=== PATIENT | male | born 1990 | race African-American/Black ===

== ENCOUNTER 2022-02-04 18:54 | Emergency (ER) | payer OTHER ==
[~2022-02-04] VITALS: Ht 185.4 cm; Wt 81.0 kg
[2022-02-04] MEDS ORDERED: ONDANSETRON 4MG ODT PO ONE ×2 (19:15→21:15)
[2022-02-04 19:28] VITALS: BP 121/75
[2022-02-04] MEDS ORDERED: TRAMADOL 50MG TABLET PO ONE (19:30)
[2022-02-04] MEDS ORDERED: LIDOCAINE HCL 1% 10 MG/ML 10ML VIAL INJ NR (19:30)
[2022-02-04] MEDS ORDERED: BACITRACIN ZINC OINT UDPKT TOP ONE (19:30)
[2022-02-04] MEDS ORDERED: LIDOCAINE HCL/PF 1% 10 MG/ML 5ML VIAL INFIL ONE (19:30)
[2022-02-04] MEDS ORDERED: TETANUS, DIPHTHERIA, PERTUSSIS VAC/PF 0.5ML (>10YR OLD) IM ONE (19:30)
[2022-02-04] MEDS ORDERED: ONDA4TAB11 PO (21:43)
[2022-02-04] MEDS ORDERED: IBUP-2029 MT (21:43)
[2022-02-04] MEDS ORDERED: MUPI15CR11 TP (21:46)
== END 2022-02-04 22:26 | disposition home or self-care (01) ==
LOC: ER 18:54
DX: S00.01XA Abrasion of scalp, initial encounter (principal); K92.0 Hematemesis; H91.91 Unspecified hearing loss, right ear; V03.931A Pedestrian on standing electric scooter injured in collision with car, pick-up or van, unspecified whether traffic or nontraffic accident, initial encounter; Y93.89 Activity, other specified; Y92.488 Other paved roadways as the place of occurrence of the external cause
CPT/HCPCS: 70450; 70480; 72125; 82962; 99291; J3490; Q0162

== ENCOUNTER 2023-11-18 13:00 | Emergency (ER) | payer MEDICAID, OTHER ==
[~2023-11-18] VITALS: Ht 188 cm; Wt 68.0 kg
[~2023-11-18 13:00] MED LIST: IBUP-2029 MT; MUPI15CR11 TP; ONDA4TAB11 PO
[2023-11-18 13:19] VITALS: O2SAT 98
[2023-11-18 14:39] LABS: EOSINOPHILS % 0.3 % (0.0-5.0); HEMATOCRIT. 50.7 % (42.0-52.0); HEMOGLOBIN. 17.1 g/dL (14.0-18.0); LYMPHOCYTES % 17.1 % (20.0-50.0); MEAN CORPUSCULAR HEMOGLOBIN 33.5 pg (28.0-32.0); MEAN CORPUSCULAR HGB CONC 33.7 g/dL (31.0-37.0); MEAN CORPUSCULAR VOLUME 99.4 fL (80.0-94.0); NEUTROPHILS % 72.6 % (40.0-76.0); PLATELET 226 x1000/uL (130-400); RED CELL DISTRIBUTION WIDTH 13.6 % (11.6-14.6); WHITE BLOOD COUNT 7.5 x1000/uL (4.5-11.0)
[2023-11-18 15:03] LABS: ALANINE AMINOTRANSFERASE 108 IU/L (10-49); ALBUMIN 4.2 g/dL (3.2-4.8); ASPARTATE AMINOTRANSFERASE 138 IU/L (<34); BILIRUBIN TOTAL 0.4 mg/dL (0.1-1.0); CALCIUM 9.8 mg/dL (8.7-10.4); CARBON DIOXIDE 23 mEq/L (21-32); CHLORIDE 95 mEq/L (98-107); CREATININE 0.7 mg/dL (0.6-1.3); ETHANOL BLOOD 139 mg/dL (<10); GLUCOSE 86 mg/dL (70-105); POTASSIUM 4.5 mEq/L (3.5-5.1); SODIUM 132 mEq/L (136-145); UREA NITROGEN BLOOD 7 mg/dL (9-23)
[2023-11-18] MEDS ORDERED: ONDANSETRON HCL 4MG/2ML INJ IV STA (15:55)
[2023-11-18] MEDS ORDERED: FOLIC ACID 1 MG, THIAMINE HCL 100 MG, MVI, ADULT NO.1 10 ML in DEXTROSE 5% WATER 1,000 ML IV ONE ×4 (16:00)
[2023-11-18] MEDS ORDERED: LORAZEPAM 2MG/ML INJ IV ONE (16:15)
[2023-11-18 18:01] VITALS: BP 109/34; PULSE 95; RESP 20; TEMP 98.4
[2023-11-18] MEDS ORDERED: ONDA4TAB50 MT (18:58)
[2023-11-18] MEDS ORDERED: L25 MT (18:58)
== END 2023-11-18 19:16 | disposition home or self-care (01) ==
LOC: ER 13:00
DX: F10.239 Alcohol dependence with withdrawal, unspecified (principal); E87.8 Other disorders of electrolyte and fluid balance, not elsewhere classified; Y90.6 Blood alcohol level of 120-199 mg/100 ml
CPT/HCPCS: 80053; 80320; 83690; 85025; 36415; 70450; 93005; 96365; 96375; 99285; J3490 ×2; J2060; J2405; J3411; J7070; G0480

== ENCOUNTER 2025-03-27 13:34 | Emergency (ER) | payer MEDICAID, OTHER ==
[~2025-03-27] VITALS: Ht 188 cm; Wt 61.0 kg
[~2025-03-27 13:34] MED LIST changes: +BICT1TAB3; -IBUP-2029 MT; -MUPI15CR11 TP; -ONDA4TAB11 PO
[2025-03-27 13:38] VITALS: TEMP 36.9; O2SAT 100
[2025-03-27] MEDS: KETOROLAC 30MG/ML VIAL IM ONE (16:39)
[2025-03-27] MEDS ORDERED: KETO10TA2 MT (16:54)
[2025-03-27 17:23] VITALS: BP 131/87; PULSE 88; RESP 16; O2SAT 99
== END 2025-03-27 17:24 | disposition home or self-care (01) ==
LOC: ER 13:34
DX: M79.672 Pain in left foot (principal); Z79.899 Other long term (current) drug therapy
CPT/HCPCS: 99284; 29515; 73610; 73650; 96372; J1885; A6449; 73630

== ENCOUNTER 2025-10-09 19:18 | Emergency (ER) | payer MEDICAID ==
[~2025-10-09] VITALS: Ht 177.8 cm; Wt 71.0 kg
[~2025-10-09 19:18] MED LIST changes: +KETO10TA2 MT
[2025-10-09 19:24] VITALS: BP 127/87; PULSE 100; RESP 18; TEMP 98.3; O2SAT 100
== END 2025-10-09 19:52 | disposition left against medical advice (07) ==
LOC: ER 19:18
DX: R45.851 Suicidal ideations (principal); Z53.21 Procedure and treatment not carried out due to patient leaving prior to being seen by health care provider
CPT/HCPCS: 99281